=== PATIENT | male | born 1995 | race American Indian/Alaskan Native ===

== ENCOUNTER 2021-02-09 14:17 | Emergency (ER) | payer SELFPAY ==
[2021-02-09 15:42] LABS: Basophils # (Auto) 0.1 K/mm3 (0.0-0.1); Basophils % (Auto) 0.6 % (0.0-1.8); Eosinophils # (Auto) 0.5 K/mm3 (0.0-0.4); Eosinophils % (Auto) 5.8 % (0.0-4.3); Hematocrit 39.5 % (35.5-45.6); Hemoglobin 13.6 gm/dl (11.8-15.2); Lymphocytes # (Auto) 1.9 K/mm3 (1.2-5.4); Mean Corpuscular HGB Conc 34 % (32-34); Mean Corpuscular Volume 77 fl (84-94); Monocytes # (Auto) 0.5 K/mm3 (0.0-0.8); Platelet Count 212 K/mm3 (140-440); Red Blood Count 5.13 M/mm3 (3.65-5.03); Red Cell Distribution Width 13.3 % (13.2-15.2)
[2021-02-09 15:52] LABS: Bilirubin,Urine NEG (Negative); Blood,Urine NEG (Negative); Color,Urine Yellow (Yellow); Protein,Urine <15 mg/dL mg/dL (Negative); Urobilinogen,Urine < 2.0 mg/dL (<2.0); WBC,Urine < 1.0 /HPF (0.0-6.0)
[2021-02-09 16:02] LABS: Alanine Aminotransferase 16 units/L (7-56); BUN/Creatinine Ratio 8; Blood Urea Nitrogen 11 mg/dL (9-20); Calcium 8.8 mg/dL (8.4-10.2); Hemolysis Index 2
--- NOTE | 2021-02-09 16:38 | Emergency Department Report ---
ED General Adult HPI - General Chief complaint: Abdominal Pain Stated complaint: my stomach hurts here PUI?: No Time Seen by Provider: 02/09/21 16:38 Source: patient, RN notes reviewed Mode of arrival: Ambulatory Limitations: No Limitations - History of Present Illness Initial comments: The patient was evaluated in the emergency department for symptoms described in the history of present illness. He/she was evaluated in the context of the global COVID-19 pandemic, which necessitated consideration that the patient might be at risk for infection with the virus that causes COVID-19. Institutional protocols and algorithms that pertain to the evaluation of patients at risk for COVID-19 are in a state of rapid change based on information released by regulatory bodies including the CDC and federal and state organizations. These policies and algorithms were followed during the patient's care in the emergency department. Please note that these policies, procedures and recommendations changed on a rapid basis. During the entire history and physical examination, I am chaperoned and escorted by nurse Rashel Spencer This is a pleasant 25-year-old gentleman. He is not known to myself previously. He reports that he recently moved here from [place], [place]. He has a history of cannabis consumption, and reports a history of endoscopically confirmed gastric ulcers, which were diagnosed while he was in [place]. He presents to the ER with a complaint of epigastric and bilateral upper quadrant abdominal pain. This pain has been present for weeks and months, but it got worse this morning. He reports it hurt him so bad that he was not able to have a bowel movement. He denies headache, neck pain. He also endorses epigastric burning chest tightness and discomfort, present for weeks. He denies travel, surgery, leg pain, leg swelling, oral contraceptive use, DVT and pulmonary embolism risk factors. He denies dysuria. He denies testicular pain, but does endorse nontraumatic uncomfortable testicular bumps. He reports being sexually active with one partner. He denies a history of STI. Denies a history of abdominal surgeries. -: Gradual, hour(s), days(s) Location: chest, abdomen Radiation: other (Epigastric region to throat) Quality: aching Consistency: constant Improves with: rest Worsens with: eating, movement - Related Data Previous Rx's Medication Instructions Recorded Last Taken Type Acetaminophen [Non-Aspirin Extra 500 mg PO Q6HR PRN #30 tablet 02/09/21 Unknown Rx Strength] Pantoprazole [Protonix TAB] 20 mg PO QDAY #30 tablet. 02/09/21 Unknown Rx Allergies Allergy/AdvReac Type Severity Reaction Status Date / Time No Known Allergies Allergy Unverified 02/09/21 14:40 ED Review of Systems ROS: Stated complaint: CHEST PAIN, ABD PAIN, ROMANA Other details as noted in HPI Constitutional: other (Denies loss of taste and smell). denies: fever Eyes: denies: eye discharge Respiratory: denies: shortness of breath Cardiovascular: chest pain Gastrointestinal: abdominal pain, constipation Genitourinary: denies: dysuria, testicular pain Musculoskeletal: denies: back pain Skin: lesions Neurological: denies: weakness Psychiatric: anxiety Hematological/Lymphatic: denies: easy bleeding ED Past Medical Hx - Past Medical History Previous Medical History?: Yes Additional medical history: abd pain, Gastric ulcers - Surgical History Past Surgical History?: Yes Additional Surgical History: Left hand - Social History Smoking Status: Current Every Day Smoker Substance Use Type: Alcohol, Marijuana - Medications Home Medications: Home Medications Medication Instructions Recorded Confirmed Last Taken Type Acetaminophen [Non-Aspirin Extra 500 mg PO Q6HR PRN #30 tablet 02/09/21 Unknown Rx Strength] Pantoprazole [Protonix TAB] 20 mg PO QDAY #30 tablet. 02/09/21 Unknown Rx ED Physical Exam - General Limitations: No Limitations General appearance: alert, in no apparent distress - Head Head exam: Present: atraumatic, normocephalic - Eye Eye exam: Present: normal appearance, EOMI. Absent: nystagmus - ENT ENT exam: Present: normal exam, normal orophraynx, mucous membranes moist, normal external ear exam - Neck Neck exam: Present: normal inspection, full ROM. Absent: tenderness, meningismus - Respiratory Respiratory exam: Present: normal lung sounds bilaterally. Absent: respiratory distress, wheezes, rales, rhonchi, stridor, decreased breath sounds - Cardiovascular Cardiovascular Exam: Present: regular rate, normal rhythm, normal heart sounds. Absent: bradycardia, tachycardia, irregular rhythm, systolic murmur, diastolic murmur, rubs, gallop - GI/Abdominal GI/Abdominal exam: Present: soft, tenderness, other (There is epigastric and bilateral upper quadrant tenderness. Patient flexes abdominal musculature when examined.). Absent: distended, rebound, rigid, pulsatile mass - Rectal Rectal exam: Present: deferred - exam: Present: normal inspection, other (There is normal testicular lie. There is normal cremasteric reflex. There is no testicular tenderness. There is no testicular swelling). Absent: testicular tenderness External exam: Present: normal external exam, other (Chaperoned by nurse Rashel Wade) - Extremities Exam Extremities exam: Present: normal inspection, full ROM, other (2+ pulses noted in the bilateral upper and lower extremities. There is no palpable cord. negative Homans sign. Muscular compartments are soft. The pelvis is stable.). Absent: pedal edema, calf tenderness - Back Exam Back exam: Present: normal inspection, full ROM. Absent: tenderness, CVA tenderness (R), CVA tenderness (L), paraspinal tenderness, vertebral tenderness - Neurological Exam Neurological exam: Present: alert, other (No facial droop. Tongue midline. Extraocular movements intact bilaterally. Facial sensation intact to light touch in V1, V2, V3 distribution bilaterally. 5 and a 5 strength in 4 extremities. Sensation intact to light touch in 4 extremities.). Absent: motor sensory deficit - Psychiatric Psychiatric exam: Present: anxious - Skin Skin exam: Present: warm, dry, intact, normal color. Absent: rash ED Course Vital Signs 02/09/21 02/09/21 02/09/21 14:43 16:42 16:46 Temperature 98.3 F Pulse Rate 79 64 Respiratory 20 18 Rate Blood Pressure 127/73 125/83 Blood Pressure [Left] O2 Sat by Pulse 99 100 100 Oximetry 02/09/21 02/09/21 16:51 17:00 Temperature Pulse Rate 70 76 Respiratory 24 17 Rate Blood Pressure Blood Pressure 125/83 [Left] O2 Sat by Pulse 100 100 Oximetry - Reevaluation(s) Reevaluation #1: 02/09/21 17:25 Differential diagnosis, including but not limited to: Pancreatitis, colitis, diverticulitis, perforated viscus, GERD, gastritis, cholecystitis, pneumonia,, pericarditis, myocarditis Assessment and plan: 25-year-old gentleman, who is afebrile, with reassuring vital signs, who is not currently tachycardic, tachypneic or hypoxic, who denies DVT and pulmonary embolism risk factors, who is low risk by Wells criteria for pulmonary embolism, PERC negative, EKG unremarkable, not tachycardic, troponin negative, low risk for major adverse cardiac event as per heart score, given the aforementioned, pericarditis, myocarditis very unlikely, clear x-ray of the chest, unremarkable mediastinum on chest x-ray, no pulsatile abdominal mass, equal pulses in the upper and lower extremities, aortic disease very unlikely (chest discomfort present for days, weeks and months, therefore, as per the [employer] clinical policy, acute myocardial infarction is ruled out with 1 set of cardiac enzymes, as symptoms present for greater than 8 hours), with a primary complaint of epigastric and bilateral up per quadrant abdominal pain, secondary complaint of testicular bumps. Patient is tender on examination, flexing his abdominal musculature, but prior to physical examination is resting comfortably in stretcher, in no acute distress. Laboratory studies unremarkable, urinalysis unremarkable, testicular exam unremarkable, we will medicate the patient supportively and symptomatically, obtain CT scan of the abdomen pelvis, and reassess after initial data points. Have discussed this plan of care with the patient, who verbalized understanding, and is amenable to this plan of care. Reevaluation #2: 02/09/21 17:38 Patient playing on cellular phone. He is not in any acute distress. Reevaluation #3: 02/09/21 17:58 Final reassessment. No significant abdominal tenderness noted on repeat examination. Patient continues to play with cellular phone. CT scan of the abdomen pelvis negative for acute findings. Patient suitable for discharge with outpatient follow-up, this is most likely gastritis/GERD/reflux. 02/09/21 17:58 ED Medical Decision Making - Lab Data Result diagrams: 02/09/21 15:05 02/09/21 15:05 Vital Signs 02/09/21 02/09/21 02/09/21 14:43 16:42 16:46 Temperature 98.3 F Pulse Rate 79 64 Respiratory 20 18 Rate Blood Pressure 127/73 125/83 Blood Pressure [Left] O2 Sat by Pulse 99 100 100 Oximetry 02/09/21 02/09/21 16:51 17:00 Temperature Pulse Rate 70 76 Respiratory 24 17 Rate Blood Pressure Blood Pressure 125/83 [Left] O2 Sat by Pulse 100 100 Oximetry Lab Results 04/25/21 04/25/21 04/25/21 Range/Units 15:05 15:05 15:05 WBC 9.0 (4.5-11.0) K/mm3 RBC 5.13 H (3.65-5.03) M/mm3 Hgb 13.6 (11.8-15.2) gm/dl Hct 39.5 (35.5-45.6) % MCV 77 L (84-94) fl MCH 27 L (28-32) pg MCHC 34 (32-34) % RDW 13.3 (13.2-15.2) % Plt Count 212 (140-440) K/mm3 Lymph % (Auto) 21.0 (13.4-35.0) % Bland % (Auto) 6.0 (0.0-7.3) % Eos % (Auto) 5.8 H (0.0-4.3) % Baso % (Auto) 0.6 (0.0-1.8) % Lymph # (Auto) 1.9 (1.2-5.4) K/mm3 Bland # (Auto) 0.5 (0.0-0.8) K/mm3 Eos # (Auto) 0.5 H (0.0-0.4) K/mm3 Baso # (Auto) 0.1 (0.0-0.1) K/mm3 Seg Neutrophils % 66.6 (40.0-70.0) % Seg Neutrophils # 6.0 (1.8-7.7) K/mm3 Sodium 139 (137-145) mmol/L Potassium 4.4 (3.6-5.0) mmol/L Chloride 103.2 (98-107) mmol/L Carbon Dioxide 29 (22-30) mmol/L Anion Gap 11 mmol/L BUN 11 (9-20) mg/dL Creatinine 1.3 (0.8-1.3) mg/dL Estimated GFR > 60 ml/min BUN/Creatinine Ratio 8 % Glucose 90 (75-100) mg/dL Calcium 8.8 (8.4-10.2) mg/dL Total Bilirubin 0.20 (0.1-1.2) mg/dL AST 13 (5-40) units/L ALT 16 (7-56) units/L Alkaline Phosphatase 56 (35-129) units/L Total Protein 6.7 (6.3-8.2) g/dL Albumin 4.0 (3.9-5) g/dL Albumin/Globulin Ratio 1.5 % Lipase 13 (13-60) units/L Urine Color (Yellow) Urine Turbidity (Clear) Urine pH (5.0-7.0) Ur Specific [place] (1.003-1.030) Urine Protein (Negative) mg/dL Urine Glucose (UA) (Negative) mg/dL Urine Ketones (Negative) mg/dL Urine Blood (Negative) Urine Nitrite (Negative) Urine Bilirubin (Negative) Urine Urobilinogen (<2.0) mg/dL Ur Leukocyte Esterase (Negative) Urine WBC (Auto) (0.0-6.0) /HPF Urine RBC (Auto) (0.0-6.0) /HPF 02/09/21 Range/Units 15:27 WBC (4.5-11.0) K/mm3 RBC (3.65-5.03) M/mm3 Hgb (11.8-15.2) gm/dl Hct (35.5-45.6) % MCV (84-94) fl MCH (28-32) pg MCHC (32-34) % RDW (13.2-15.2) % Plt Count (140-440) K/mm3 Lymph % (Auto) (13.4-35.0) % Bland % (Auto) (0.0-7.3) % Eos % (Auto) (0.0-4.3) % Baso % (Auto) (0.0-1.8) % Lymph # (Auto) (1.2-5.4) K/mm3 Bland # (Auto) (0.0-0.8) K/mm3 Eos # (Auto) (0.0-0.4) K/mm3 Baso # (Auto) (0.0-0.1) K/mm3 Seg Neutrophils % (40.0-70.0) % Seg Neutrophils # (1.8-7.7) K/mm3 Sodium (137-145) mmol/L Potassium (3.6-5.0) mmol/L Chloride (98-107) mmol/L Carbon Dioxide (22-30) mmol/L Anion Gap mmol/L BUN (9-20) mg/dL Creatinine (0.8-1.3) mg/dL Estimated GFR ml/min BUN/Creatinine Ratio % Glucose (75-100) mg/dL Calcium (8.4-10.2) mg/dL Total Bilirubin (0.1-1.2) mg/dL AST (5-40) units/L ALT (7-56) units/L Alkaline Phosphatase (35-129) units/L Total Protein (6.3-8.2) g/dL Albumin (3.9-5) g/dL Albumin/Globulin Ratio % Lipase (13-60) units/L Urine Color Yellow (Yellow) Urine Turbidity Clear (Clear) Urine pH 9.0 H (5.0-7.0) Ur Specific [place] 1.016 (1.003-1.030) Urine Protein <15 mg/dl (Negative) mg/dL Urine Glucose (UA) Neg (Negative) mg/dL Urine Ketones Neg (Negative) mg/dL Urine Blood Neg (Negative) Urine Nitrite Neg (Negative) Urine Bilirubin Neg (Negative) Urine Urobilinogen < 2.0 (<2.0) mg/dL Ur Leukocyte Esterase Neg (Negative) Urine WBC (Auto) < 1.0 (0.0-6.0) /HPF Urine RBC (Auto) 1.0 (0.0-6.0) /HPF - EKG Data -: EKG Interpreted by Ak EKG shows normal: sinus rhythm Rate: normal - EKG Data When compared to previous EKG there are: previous EKG unavailable 02/09/21 17:24 EKG interpreted at 16: 47 Sinus rhythm, 64 bpm. Normal axis, normal intervals. Early repolarization, not a STEMI. No prior for comparison. - Radiology Data Radiology results: pending, report reviewed, image reviewed [address] [address] XRay Report Signed Patient: ALIE WELLS MR#: [id number] 139 : 1995 Acct:[id number] Age/Sex: 25 / M ADM Date: 02/09/21 Loc: ED Attending Dr: Ordering Physician: NICOLÁS ROB MD Date of Service: 02/09/21 Procedure(s): XR chest 1V ap Accession Number(s): [id number] cc: NICOLÁS ROB MD Fluoro Time In Minutes: CHEST 1 VIEW 02/09/2021 4:50 PM INDICATION / CLINICAL INFORMATION: upper abd pain chest pain. COMPARISON: None available. FINDINGS: SUPPORT DEVICES: None. HEART / MEDIASTINUM: No significant abnormality. LUNGS / PLEURA: No significant pulmonary or pleural abnormality. No pneumothorax. ADDITIONAL FINDINGS: No significant additional findings. IMPRESSION: 1. No acute findings. Signer Name: Familia Alfaro MD Signed: 02/09/2021 5:12 PM Workstation Name: [id number] Transcribed By: DT Dictated By: Rafal Alfaro MD Electronically Authenticated By: Rafal Alfaro MD Signed Date/Time: 02/09/211711 DD/ 11 [facility] [address] [place] [address] Cat Scan Report Signed Patient: ALIE WELLS MR#: [id number] 139 : 1995 Acct:[id number] Age/Sex: 25 / M ADM Date: 02/09/21 Loc: ED Attending Dr: Ordering Physician: NICOLÁS ROB MD Date of Service: 02/09/21 Procedure(s): CT abdomen pelvis w con Accession Number(s): [id number] cc: NICOLÁS ROB MD CT ABDOMEN AND PELVIS WITH CONTRAST INDICATION / CLINICAL INFORMATION: Acute upper abdominal pain. TECHNIQUE: Axial CT images were obtained through the abdomen and pelvis after 100 mL Omnipaque [address] scans at this location are performed using CT dose reduction for ALARA by means of automated exposure control. COMPARISON: None available. FINDINGS: LOWER CHEST: No si gnificant abnormality. LIVER: No significant abnormality. GALLBLADDER: No significant abnormality. BILE DUCTS: No significant abnormality. PANCREAS: No significant abnormality. SPLEEN: No significant abnormality. ADRENALS: No significant abnormality. RIGHT KIDNEY / URETER: No significant abnormality. LEFT KIDNEY / URETER: No significant abnormality. STOMACH / SMALL BOWEL: No significant abnormality. COLON: No significant abnormality. APPENDIX: No significant abnormality. PERITONEUM: No free fluid. No free air. No fluid collection. LYMPH NODES: No significant adenopathy. AORTA / ARTERIES: No si gnificant abnormality. IVC / VEINS: No significant abnormality. URINARY BLADDER: No significant abnormality. REPRODUCTIVE ORGANS: No significant abnormality. ADDITIONAL FINDINGS: None. SKELETAL SYSTEM: Benign-appearing sclerotic lesion in the right intertrochanteric femur IMPRESSION: 1. No acute process in the abdomen or pelvis. Signer Name: Familia Alfaro MD Signed: 02/09/2021 5:42 PM Workstation Name: [id number] Transcribed By: DT Dictated By: Rafal Alfaro MD Electronically Authenticated By: Rafal Alfaro MD Signed Date/Time: 02/09/211741 DD/ 38 Critical care attestation.: If time is entered above; I have spent that time in minutes in the direct care of this critically ill patient, excluding procedure time. ED Disposition Clinical Impression: Acute upper abdominal pain, History of stomach ulcers Disposition: DC-01 TO HOME OR SELFCARE Is pt being admited?: No Does the pt Need Aspirin: No Condition: Good Instructions: Peptic Ulcer, [id number], Abdominal Pain, Adult, [id number] Additional Instructions: Please avoid consumption of Motrin, ibuprofen, Naprosyn, Aleve, heavy and spicy foods, tobacco, alcohol, smoke products, marijuana and cannabis. Do not take metformin medication for the next 2 days, if patient takes this medication. Patient most likely experiencing symptoms secondary to gastric ulcer disease. Take the medication as prescribed for pain, follow-up with your primary care doctor or instructional media services technician within the next 7 days. For the patient's convenience, numerous local providers have been listed that he may follow-up with. Please have a primary care doctor or instructional media services technician contact medical records department to obtain copies of laboratory studies and radiology studies and follow-up on nonemergent incidental abnormal findings. Patient most likely has peptic ulcer disease, which may last for days, weeks, months, or even permanently. In addition to taking the aforementioned medications, recommend plenty of water consumption, at least 6 cups of water per day, and consumption of plenty of fiber, vegetables, lean protein, and unprocessed foods. Please return to the emergency room right away with new pain, worsened pain, migration of pain, projectile vomiting, change in mental status, confusion, inability to tolerate liquid feeds, new, worsened or different symptoms not present on the initial emergency room evaluation. Prescriptions: Acetaminophen [Non-Aspirin Extra Strength] 500 mg PO Q6HR PRN #30 tablet PRN Reason: Pain , Severe (7-10) Pantoprazole [Protonix TAB] 20 mg PO QDAY #30 tablet.dr Referrals: GINO CANALES MD [Staff Physician] - 7-10 days (Primary care doctor) [facility] [Provider Group] - 3-5 Days (Gastroenterology) Heart Score - HEART Score History: Slightly suspicious EKG: Non-specific Age: < 45 Risk factors: 1-2 risk factors (smoke product use) Troponin: < normal limit HEART Score: 2 - EKG Read Time Time EKG Completed: 16:46 EKG Read Time: 16:47 - Critical Actions Critical Actions: 0-3 pts:0.9-1.7%risk of adverse cardiac event.Candidate for discharge
[2021-02-09] MEDS ORDERED: ACETAMINOPHEN 500 MG TAB PO ONE (16:54)
[2021-02-09] MEDS ORDERED: SUCRALFATE 1 GM/10 ML ORAL LIQD PO ONE (16:54)
[2021-02-09] MEDS ORDERED: MORPHINE 4 MG/1 ML INJ IV ONE (16:54)
[2021-02-09] MEDS ORDERED: FAMOTIDINE 20 MG/2 ML INJ IV ONE (16:54)
[2021-02-09] MEDS ORDERED: SODIUM CHLORIDE 0.9% 1000 ML 1,000 ML IV ONE (16:54)
--- NOTE | 2021-02-09 17:16 | XRay Report ---
CHEST 1 VIEW 02/09/2021 4:50 PM INDICATION / CLINICAL INFORMATION: upper abd pain chest pain. COMPARISON: None available. FINDINGS: SUPPORT DEVICES: None. HEART / MEDIASTINUM: No significant abnormality. LUNGS / PLEURA: No significant pulmonary or pleural abnormality. No pneumothorax. ADDITIONAL FINDINGS: No significant additional findings. IMPRESSION: 1. No acute findings. Signer Name: Familia Alfaro MD Signed: 02/09/2021 5:12 PM Workstation Name: [id number]
--- NOTE | 2021-02-09 17:46 | Cat Scan Report ---
CT ABDOMEN AND PELVIS WITH CONTRAST INDICATION / CLINICAL INFORMATION: Acute upper abdominal pain. TECHNIQUE: Axial CT images were obtained through the abdomen and pelvis after 100 mL Omnipaque [address] scans at this location are performed using CT dose reduction for ALARA by means of automated exposure control. COMPARISON: None available. FINDINGS: LOWER CHEST: No significant abnormality. LIVER: No significant abnormality. GALLBLADDER: No significant abnormality. BILE DUCTS: No significant abnormality. PANCREAS: No significant abnormality. SPLEEN: No significant abnormality. ADRENALS: No significant abnormality. RIGHT KIDNEY / URETER: No significant abnormality. LEFT KIDNEY / URETER: No significant abnormality. STOMACH / SMALL BOWEL: No significant abnormality. COLON: No significant abnormality. APPENDIX: No significant abnormality. PERITONEUM: No free fluid. No free air. No fluid collection. LYMPH NODES: No significant adenopathy. AORTA / ARTERIES: No significant abnormality. IVC / VEINS: No significant abnormality. URINARY BLADDER: No significant abnormality. REPRODUCTIVE ORGANS: No significant abnormality. ADDITIONAL FINDINGS: None. SKELETAL SYSTEM: Benign-appearing sclerotic lesion in the right intertrochanteric femur IMPRESSION: 1. No acute process in the abdomen or pelvis. Signer Name: Familia Alfaro MD Signed: 02/09/2021 5:42 PM Workstation Name: [id number]
[2021-02-09 18:50] VITALS: BP 135/92
--- NOTE | 2021-02-10 10:42 | Electrocardiograph Report ---
[facility] Test Date: 2021-02-09 Test Time: 16:46:01 Pat Name: ALIE WELLS Department: Room: Gender: M Outside Operator: YUNIEL : 1995 Requested By: NICOLÁS ROB Order Number: [id number] Reading MD: Jesus Miranda Measurements Intervals [place] Rate: 64 P: 54 PA: 177 QRS: 82 QRSD: 85 T: 64 QT: 385 QTc: 397 Interpretive Statements Sinus rhythm No previous ECG available for comparison Electronically Signed On 02-10-2021 10:42:33 EDT by Jesus Miranda
== END 2021-02-09 18:53 | disposition home or self-care (01) ==
LOC: ED 14:17
DX: R10.11 Right upper quadrant pain (principal); R10.12 Left upper quadrant pain; F17.200 Nicotine dependence, unspecified, uncomplicated; F12.90 Cannabis use, unspecified, uncomplicated; Z79.899 Other long term (current) drug therapy; Z98.890 Other specified postprocedural states; Z87.11 Personal history of peptic ulcer disease
CPT/HCPCS: 36415; 71045; 74177; 80053; 81001; 83690; 84484; 85025; 93005; 96361; 96374; 96375; 99285; J2270; J7030; Q9967